=== PATIENT | male | born 1970 | race Caucasian/White ===

== ENCOUNTER 2017-06-07 13:10 | Emergency (ER) | payer OTHER ==
[~2017-06-07] VITALS: Ht 182.9 cm; Wt 136.1 kg
[~2017-06-07 13:10] MED LIST: AMOX500 PO; ASPI81CH PO; ATOR20 PO; HYDACE5 PO
[2017-06-07 13:56] LABS: BASOPHILS ABSOLUTE AUTO 0.03 K/mm3 (0.00-0.23); BASOPHILS PERCENT AUTO 0 % (0-2); EOSINOPHILS PERCENT AUTO 1 % (0-6); Hematocrit 44.1 % (37.0-53.0); Hemoglobin 14.7 g/dL (13.5-17.5); IMMATURE GRAN ABSOLUTE AUTO 0.05 K/mm3 (0.00-0.10); IMMATURE GRAN PERCENT AUTO 1 % (0-1); LYMPHOCYTES ABSOLUTE AUTO 0.97 K/mm3 (0.84-5.20); LYMPHOCYTES PERCENT AUTO 14 % (21-46); MONOCYTES PERCENT AUTO 9 % (4-13); Mean Corpuscular HGB 32.1 pg (26.0-34.0); Mean Corpuscular HGB Conc 33.3 g/dL (31.5-36.5); Mean Corpuscular Volume 96 fL (80-100); Mean Platelet Volume 9.5 fL (9.1-12.4); NEUTROPHILS ABSOLUTE AUTO 5.17 K/mm3 (1.96-9.15); NEUTROPHILS PERCENT AUTO 75 % (41-73); Platelet Count 140 K/mm3 (150-400); RDW Coefficient Variation 12.8 % (11.7-14.2); Red Blood Cell Count 4.58 M/mm3 (4.30-5.90); White Blood Cell Count 6.92 K/mm3 (4.00-11.30)
[2017-06-07 14:17] LABS: Alanine Aminotransfer (ALT/SGP 20 U/L (12-78); Albumin, Blood 3.5 g/dL (3.4-5.0); Albumin/Globulin Ratio 0.9 (0.8-1.8); Alk Phos 81 U/L (50-136); Anion Gap 7 mmol/L (6-16); Aspartate Aminotrans (AST/SGOT 28 U/L (12-37); Bilirubin, Total 0.5 mg/dL (0.1-1.0); Blood Urea Nitrogen 20 mg/dL (8-24); CO2, Blood 27 mmol/L (21-32); Chloride, Blood 106 mmol/L (98-108); Creatinine, Blood 1.05 mg/dL (0.60-1.20); Globulin, Blood 3.8 g/dL (2.2-4.0); Glomerular Filtration Rate >60 (60-); Glucose, Blood 126 mg/dL (70-99); Potassium, Blood 4.3 mmol/L (3.5-5.5); Sodium, Blood 140 mmol/L (136-145); Total Protein, Blood 7.3 g/dL (6.4-8.2)
[2017-06-07 16:09] LABS: Source, Urine Clean Catch
[2017-06-07] MEDS ORDERED: PSEU120ER PO (16:27)
[2017-06-07] MEDS ORDERED: AZIT500 PO (16:27)
[2017-06-07] MEDS ORDERED: ALBU90OI6 INH (16:27)
[2017-06-07] MEDS ORDERED: Prednisone20 MG PO (16:27)
[2017-06-07 16:47] LABS: Appearance, Urine Clear (Clear); Bilirubin, Urine Neg (Neg); Blood, Urine Neg (Neg); Color, Urine Yellow (P-Yellow); Glucose Qualitative, Urine Neg (Neg); Ketones, Urine Neg (Neg); Leukocyte Esterase, Urine Neg (Neg); Nitrite, Urine Neg (Neg); Protein, Urine Neg (Neg); Urobilinogen, Urine NORM (Normal)
== END 2017-06-07 16:47 | disposition home or self-care (01) ==
LOC: ER 13:10
PROVIDERS: Emergency Medicine
DX: J20.9 Acute bronchitis, unspecified (principal); J01.90 Acute sinusitis, unspecified; I21.9 Acute myocardial infarction, unspecified; Z91.013 Allergy to seafood; Z87.891 Personal history of nicotine dependence
CPT/HCPCS: 36415; 71046; 80053; 81003; 85025; 86850; 86900; 86901; 93005; 93010; 94640; 96361; 96374; 99284; J0696; J7030

== ENCOUNTER 2017-10-16 06:48 | Emergency (ER) | payer OTHER ==
[~2017-10-16] VITALS: Ht 182.9 cm; Wt 136.1 kg
[~2017-10-16 06:48] MED LIST changes: +ALBU90OI6 INH; +AZIT500 PO; +PSEU120ER PO; +Prednisone20 MG PO
[2017-10-16] MEDS ORDERED: FURO20 (07:17)
[2017-10-16] MEDS ORDERED: ALLO100 (07:17)
[2017-10-16 07:26] LABS: BASOPHILS ABSOLUTE AUTO 0.03 K/mm3 (0.00-0.23); BASOPHILS PERCENT AUTO 1 % (0-2); EOSINOPHILS ABSOLUTE AUTO 0.19 K/mm3 (0.00-0.68); EOSINOPHILS PERCENT AUTO 3 % (0-6); Hematocrit 43.7 % (37.0-53.0); Hemoglobin 14.7 g/dL (13.5-17.5); IMMATURE GRAN ABSOLUTE AUTO 0.02 K/mm3 (0.00-0.10); IMMATURE GRAN PERCENT AUTO 0 % (0-1); LYMPHOCYTES ABSOLUTE AUTO 1.36 K/mm3 (0.84-5.20); LYMPHOCYTES PERCENT AUTO 21 % (21-46); MONOCYTES PERCENT AUTO 6 % (4-13); Mean Corpuscular HGB 33.2 pg (26.0-34.0); Mean Corpuscular HGB Conc 33.6 g/dL (31.5-36.5); Mean Corpuscular Volume 99 fL (80-100); NEUTROPHILS ABSOLUTE AUTO 4.42 K/mm3 (1.96-9.15); NEUTROPHILS PERCENT AUTO 69 % (41-73); Platelet Count 128 K/mm3 (150-400); RDW Coefficient Variation 12.1 % (11.7-14.2); RDW Standard Deviation 43.9 fL (35.1-46.3); Red Blood Cell Count 4.43 M/mm3 (4.30-5.90); White Blood Cell Count 6.42 K/mm3 (4.00-11.30)
[2017-10-16 07:44] LABS: Alanine Aminotransfer (ALT/SGP 25 U/L (12-78); Albumin, Blood 3.5 g/dL (3.4-5.0); Albumin/Globulin Ratio 0.9 (0.8-1.8); Alk Phos 70 U/L (50-136); Anion Gap 6 mmol/L (6-16); Aspartate Aminotrans (AST/SGOT 23 U/L (12-37); Bilirubin, Total 0.4 mg/dL (0.1-1.0); Blood Urea Nitrogen 10 mg/dL (8-24); Bun/Creatinine Ratio 9.1 (12.0-20.0); CO2, Blood 29 mmol/L (21-32); Calcium, Blood 8.2 mg/dL (8.5-10.1); Chloride, Blood 107 mmol/L (98-108); Globulin, Blood 3.8 g/dL (2.2-4.0); Glomerular Filtration Rate >60 (60-); Glucose, Blood 118 mg/dL (70-99); Sodium, Blood 142 mmol/L (136-145); Total Protein, Blood 7.3 g/dL (6.4-8.2); Troponin I <0.015 ng/mL (0.000-0.040)
[2017-10-16] MEDS ORDERED: Lasix40 MG PO (09:03)
[2017-10-16] MEDS ORDERED: Prednisone20 MG PO (09:03)
[2017-10-16] MEDS ORDERED: ALBU90OI INH (09:03)
== END 2017-10-16 09:09 | disposition home or self-care (01) ==
LOC: ER 06:48
DX: R06.02 Shortness of breath (principal); Z91.013 Allergy to seafood; Z79.899 Other long term (current) drug therapy; I50.9 Heart failure, unspecified; J45.909 Unspecified asthma, uncomplicated; Z87.891 Personal history of nicotine dependence
CPT/HCPCS: 36415; 71046; 80053; 83880; 84484; 85025; 93005; 93010; 94640; 96374; 96375; 99285-25; J1940; J2930

== ENCOUNTER 2017-12-10 21:36 | Observation (INO) | payer OTHER ==
[~2017-12-10] VITALS: Ht 182.9 cm; Wt 142.9 kg
[~2017-12-10 21:36] MED LIST changes: +ALBU90OI INH; +ALLO100 PO; +FURO20; +Lasix40 MG PO
[2017-12-10] MEDS ORDERED: VITAMIN D35000 UNIT PO (21:59)
[2017-12-10] MEDS ORDERED: SPIR25 PO (22:00)
[2017-12-10] MEDS ORDERED: LOSA25 PO (22:00)
[2017-12-10] MEDS ORDERED: FURO40 PO (22:01)
[2017-12-10] MEDS ORDERED: ATOR80 PO (22:01)
[2017-12-10] MEDS ORDERED: NITR.4SL SL (22:03)
[2017-12-10 22:15] LABS: BASOPHILS ABSOLUTE AUTO 0.07 K/mm3 (0.00-0.23); BASOPHILS PERCENT AUTO 1 % (0-2); EOSINOPHILS ABSOLUTE AUTO 0.17 K/mm3 (0.00-0.68); EOSINOPHILS PERCENT AUTO 2 % (0-6); Hematocrit 43.7 % (37.0-53.0); Hemoglobin 14.4 g/dL (13.5-17.5); IMMATURE GRAN ABSOLUTE AUTO 0.07 K/mm3 (0.00-0.10); IMMATURE GRAN PERCENT AUTO 1 % (0-1); LYMPHOCYTES ABSOLUTE AUTO 2.78 K/mm3 (0.84-5.20); LYMPHOCYTES PERCENT AUTO 34 % (21-46); MONOCYTES ABSOLUTE AUTO 0.72 K/mm3 (0.16-1.47); MONOCYTES PERCENT AUTO 9 % (4-13); Mean Corpuscular HGB 32.5 pg (26.0-34.0); Mean Corpuscular Volume 99 fL (80-100); Mean Platelet Volume 9.6 fL (9.1-12.4); NEUTROPHILS ABSOLUTE AUTO 4.32 K/mm3 (1.96-9.15); NEUTROPHILS PERCENT AUTO 53 % (41-73); Platelet Count 166 K/mm3 (150-400); RDW Coefficient Variation 12.3 % (11.7-14.2); RDW Standard Deviation 44.5 fL (35.1-46.3); Red Blood Cell Count 4.43 M/mm3 (4.30-5.90); White Blood Cell Count 8.13 K/mm3 (4.00-11.30)
[2017-12-10 22:25] LABS: Alanine Aminotransfer (ALT/SGP 26 U/L (12-78); Albumin, Blood 3.8 g/dL (3.4-5.0); Albumin/Globulin Ratio 1.1 (0.8-1.8); Alk Phos 61 U/L (50-136); Anion Gap 5 mmol/L (6-16); Aspartate Aminotrans (AST/SGOT 26 U/L (12-37); Bilirubin, Total 0.6 mg/dL (0.1-1.0); Blood Urea Nitrogen 12 mg/dL (8-24); Bun/Creatinine Ratio 9.2 (12.0-20.0); CO2, Blood 33 mmol/L (21-32); Calcium, Blood 8.1 mg/dL (8.5-10.1); Chloride, Blood 101 mmol/L (98-108); Creatinine, Blood 1.31 mg/dL (0.60-1.20); Globulin, Blood 3.6 g/dL (2.2-4.0); Glomerular Filtration Rate >60 (60-); Glucose, Blood 153 mg/dL (70-99); Potassium, Blood 3.6 mmol/L (3.5-5.5); Sodium, Blood 139 mmol/L (136-145); Total Protein, Blood 7.4 g/dL (6.4-8.2); Troponin I <0.015 ng/mL (0.000-0.040)
[2017-12-11 00:03] LABS: Ethanol (Alcohol), Blood, Med 25 mg/dL
[2017-12-11] MEDS ORDERED: ASPI81CH PO (01:30)
[2017-12-11 03:25] LABS: U Amphetamine Screen Not Detected; U Barbituate Screen Not Detected; U Benzodiazapine Screen Not Detected; U Buprenorphine Screen Not Detected; U Cannabinoids Screen DETECTED; U Cocaine Screen Not Detected; U Methadone Screen DETECTED; U Methamphetamine Screen Not Detected; U Opiates Screen Not Detected; U Oxycodone Screen Not Detected; U Phencyclidine Screen Not Detected; U Propoxyphene Screen Not Detected
[2017-12-11 05:27] LABS: Anion Gap 7 mmol/L (6-16); Blood Urea Nitrogen 16 mg/dL (8-24); Bun/Creatinine Ratio 13.3 (12.0-20.0); CO2, Blood 29 mmol/L (21-32); Calcium, Blood 8.3 mg/dL (8.5-10.1); Chloride, Blood 103 mmol/L (98-108); Glomerular Filtration Rate >60 (60-); Glucose, Blood 114 mg/dL (70-99); Potassium, Blood 4.1 mmol/L (3.5-5.5); Sodium, Blood 139 mmol/L (136-145)
== END 2017-12-11 13:45 | disposition home or self-care (01) ==
LOC: ER 21:36 → MEDS 12-11 00:02 → ENPENDDIS 12-11 11:58 → MEDS 12-11 13:45
PROVIDERS: Emergency Medicine; Family Medicine
DX: R55 Syncope and collapse (principal); I11.0 Hypertensive heart disease with heart failure; I50.40 Unspecified combined systolic (congestive) and diastolic (congestive) heart failure; E66.01 Morbid (severe) obesity due to excess calories; I95.89 Other hypotension; E78.5 Hyperlipidemia, unspecified; M10.9 Gout, unspecified; Z79.82 Long term (current) use of aspirin; Z79.899 Other long term (current) drug therapy; Z68.41 Body mass index [BMI] 40.0-44.9, adult
CPT/HCPCS: 36415; 71046; 80048; 80053; 83880; 84484; 85025; 90686; 93005; 93010; 99285-25; G0008; G0378; G0480; J7030

== ENCOUNTER 2018-10-27 19:23 | Inpatient (IN) | payer OTHER ==
[~2018-10-27] VITALS: Ht 182.9 cm; Wt 148.6 kg
[~2018-10-27 19:23] MED LIST changes: -ALLO100 PO; +ALLO300 PO; +ATOR80 PO; +FURO40 PO; +LOSA25 PO; +NITR.4SL SL; +SPIR25 PO; +VITAMIN D35000 UNIT PO
[2018-10-27 20:06] LABS: BASOPHILS ABSOLUTE AUTO 0.04 K/mm3 (0.00-0.23); BASOPHILS PERCENT AUTO 0 % (0-2); EOSINOPHILS ABSOLUTE AUTO 0.02 K/mm3 (0.00-0.68); EOSINOPHILS PERCENT AUTO 0 % (0-6); Hematocrit 43.5 % (37.0-53.0); IMMATURE GRAN PERCENT AUTO 1 % (0-1); LYMPHOCYTES ABSOLUTE AUTO 1.89 K/mm3 (0.84-5.20); LYMPHOCYTES PERCENT AUTO 16 % (21-46); MONOCYTES ABSOLUTE AUTO 1.03 K/mm3 (0.16-1.47); MONOCYTES PERCENT AUTO 9 % (4-13); Mean Corpuscular HGB Conc 34.5 g/dL (31.5-36.5); Mean Corpuscular Volume 96 fL (80-100); Mean Platelet Volume 9.9 fL (9.1-12.4); NEUTROPHILS ABSOLUTE AUTO 8.46 K/mm3 (1.96-9.15); NEUTROPHILS PERCENT AUTO 73 % (41-73); Platelet Count 166 K/mm3 (150-400); RDW Coefficient Variation 13.2 % (11.7-14.2); RDW Standard Deviation 46.6 fL (35.1-46.3); Red Blood Cell Count 4.55 M/mm3 (4.30-5.90); White Blood Cell Count 11.54 K/mm3 (4.00-11.30)
[2018-10-27 20:28] LABS: Alanine Aminotransfer (ALT/SGP 18 U/L (12-78); Albumin, Blood 3.3 g/dL (3.4-5.0); Albumin/Globulin Ratio 0.8 (0.8-1.8); Alk Phos 81 U/L (50-136); Anion Gap 6 mmol/L (6-16); Aspartate Aminotrans (AST/SGOT 20 U/L (12-37); Bilirubin, Total 0.6 mg/dL (0.1-1.0); Blood Urea Nitrogen 11 mg/dL (8-24); Bun/Creatinine Ratio 9.3 (12.0-20.0); CO2, Blood 24 mmol/L (21-32); Calcium, Blood 8.6 mg/dL (8.5-10.1); Chloride, Blood 102 mmol/L (98-108); Creatinine, Blood 1.18 mg/dL (0.60-1.20); Globulin, Blood 4.4 g/dL (2.2-4.0); Glomerular Filtration Rate >60 (60-); Glucose, Blood 194 mg/dL (70-99); Potassium, Blood 3.6 mmol/L (3.5-5.5); Sodium, Blood 132 mmol/L (136-145); Total Protein, Blood 7.7 g/dL (6.4-8.2); Troponin I 0.031 ng/mL (0.000-0.040)
[2018-10-27] MEDS ORDERED: METO25ER PO (20:40)
--- NOTE | 2018-10-27 23:00 | NUR ---
RECEIVED HAND OFF FROM Patti LAGUNA RN IN ER USING SBAR. TRANSPORTED TO ROOM VIA STRETCHER. TRANFERED SELF TO BED WITH STANDBY ASSIST, TOLERATED WELL. AAO X3, HICKS, FOLLOWS ALL COMMADNS. ORIENTED TO ROOM, CALL SYSTEM, AND POC, VOICES UNDERSTADING. RESPIRARTIONS EVEN AND UNLABORED ON ROOM AIR. LUNG SOUNDS CLEAR AND DIMINSHED IN BASES BILATERALLY. ABDOMEN ROUND AND OBESE WITH DISTANT BOWEL SOUNDS NOTED. LAST BM WAS YESTERDAY AND IS PASSING ADEQUATE GAS. CONTINENT OF BOWEL AND BLADDER, ABLE TO USE COMMODE IN ROOM WITH STANDBY ASSIST. LEFT HAND SL 20G PIV IS PATENT, FLUSHING WITH EASE. 18G TO RIGHT AC IS PATENT, FLUSHING WITH EASE WHILE INFUSING AMIODARONE AT 33.3ML/HR PER MD ORDERS. SCD'S TO BLE. WILL BE NPO PAST MN. BEDSIDE MONITORING IN PLACE, TELE SHOWS NSR WITH PAC'S, 74 BPM. DENEIS FURTHER NEEDS AT THIS TIME. ADMISSION ASSESSMENT IN PROGRESS. SAFETY MEASURES IN PLACE. WILL CONTINUE TO MONITOR.
[2018-10-28 00:05] LABS: Phosphorus, Blood 3.1 mg/dL (2.5-4.9)
[2018-10-28 04:14] LABS: BASOPHILS ABSOLUTE AUTO 0.03 K/mm3 (0.00-0.23); BASOPHILS PERCENT AUTO 0 % (0-2); EOSINOPHILS ABSOLUTE AUTO 0.03 K/mm3 (0.00-0.68); EOSINOPHILS PERCENT AUTO 0 % (0-6); Hematocrit 38.5 % (37.0-53.0); Hemoglobin 12.8 g/dL (13.5-17.5); IMMATURE GRAN ABSOLUTE AUTO 0.08 K/mm3 (0.00-0.10); IMMATURE GRAN PERCENT AUTO 1 % (0-1); LYMPHOCYTES ABSOLUTE AUTO 1.13 K/mm3 (0.84-5.20); LYMPHOCYTES PERCENT AUTO 14 % (21-46); MONOCYTES ABSOLUTE AUTO 0.78 K/mm3 (0.16-1.47); MONOCYTES PERCENT AUTO 10 % (4-13); Mean Corpuscular HGB 32.3 pg (26.0-34.0); Mean Corpuscular HGB Conc 33.2 g/dL (31.5-36.5); Mean Corpuscular Volume 97 fL (80-100); Mean Platelet Volume 9.4 fL (9.1-12.4); NEUTROPHILS ABSOLUTE AUTO 6.04 K/mm3 (1.96-9.15); NEUTROPHILS PERCENT AUTO 75 % (41-73); Platelet Count 146 K/mm3 (150-400); RDW Coefficient Variation 13.1 % (11.7-14.2); RDW Standard Deviation 46.9 fL (35.1-46.3); Red Blood Cell Count 3.96 M/mm3 (4.30-5.90); White Blood Cell Count 8.09 K/mm3 (4.00-11.30)
[2018-10-28 04:28] LABS: International Normalized Ratio 1.03; Prothrombin Time Results 10.9 Sec (9.7-11.5)
[2018-10-28 04:43] LABS: Anion Gap 5 mmol/L (6-16); Blood Urea Nitrogen 12 mg/dL (8-24); Bun/Creatinine Ratio 11.3 (12.0-20.0); CO2, Blood 29 mmol/L (21-32); Chloride, Blood 104 mmol/L (98-108); Creatinine, Blood 1.06 mg/dL (0.60-1.20); Glomerular Filtration Rate >60 (60-); Glucose, Blood 148 mg/dL (70-99); Potassium, Blood 4.5 mmol/L (3.5-5.5); Sodium, Blood 138 mmol/L (136-145)
--- NOTE | 2018-10-28 06:06 | NUR ---
SHIFT SUMMARY LYING IN SEMI FOWLERS WEITH EYES CLOSED. HAS RESTED WELL SINCE ADMISSION AFTER K-RIDER PLACED TO 25ML/HR SINCE HE COULD NOT TOLERATE 50ML/HR. 2ND K-RIDER INFUSING NOW. HAS BEEN NPO SINCE MIDNIGHT. NO C/O CP. DENIES FURTHER NEEDS AT THIS TIME. SAFETY MEASURES IN PLACE. WILL GIVE HAND OFF TO ONCOING SHIFT USING SBAR.
--- NOTE | 2018-10-28 07:20 | NUR ---
START OF SHIFT NOTE: RECEIVED REPORT FROM LUCIE BALDERAS, ASSUMED CARE, PATIENT IS AWAKE, ALERT AND ORIENTED, FOLLOWS COMMANDS, AT BEDSIDE, PATIENT HAS KCL INFUSING VIS LEFT HAND 20G PIV, TOLERATING WELL, LUNG SOUNDS ARE CLEAR, NSR WITH HR IN 60'S, DENIES PAIN, AFEBRILE, REPORTS NO CHEST PAIN/PRESSURE, NO DIAPHORESIS, BOWEL TONES HYPOACTIVE, USES URINAL AND HAS GOOD URINE OUTPUT, ORDERED URINE SAMPLE SENT, PEDAL PULSES STRONG, CALL LIGHT IN REACH, WILL CONTINUE TO MONITOR.
--- NOTE | 2018-10-28 07:45 | NUR ---
DR. NOLASCO IN TO SEE PATIENT, SCHEDULED FOR HEART CATH TODAY, NPO OF NOW, HOLD AM MEDS, PATIENT PLEASANT AND COOPERATIVE, PENDING QUESTIONS ANSWERED, CALL LIGHT IN REACH, WILL CONTINUE TO MONITOR.
[2018-10-28 08:07] LABS: U Amphetamine Screen Not Detected; U Barbituate Screen Not Detected; U Benzodiazapine Screen Not Detected; U Buprenorphine Screen Not Detected; U Cannabinoids Screen DETECTED; U Cocaine Screen Not Detected; U Methadone Screen Not Detected; U Methamphetamine Screen Not Detected; U Opiates Screen Not Detected; U Oxycodone Screen DETECTED; U Phencyclidine Screen Not Detected; U Propoxyphene Screen Not Detected
--- NOTE | 2018-10-28 08:15 | NUR ---
DR. MILTON IN TO SEE PATIENT, NO NEW ORDERS RECEIVED.
--- NOTE | 2018-10-28 09:15 | NUR ---
CORPORATE SCHEDULER IN TO OBTAIN ORDERED ECHO.
--- NOTE | 2018-10-28 09:37 | NUR ---
ALEJANDRA, WIRE HANGER NURSE IN TO GET PATIENT FOR PENDING HEART CATH PROCEDURE.
--- NOTE | 2018-10-28 09:46 | NUR ---
PATIENT TO PLATING ENGINEER VIA ICU HOSPITAL BED.
--- NOTE | 2018-10-28 11:05 | NUR ---
ECHOCARDIOGRAM COMPLETED
--- NOTE | 2018-10-28 13:25 | NUR ---
PATIENT RETURNED FROM LINE SUPERVISOR IN HOSPITAL BED, TR BAND IN PLACE WRAPPED WITH ARMBOARD ON RIGHT RADIAL, PROCEDURE UNSUCCESSFUL, PATIENT PENDING TRANSFER TO [facility], NPO AT THIS TIME, SCD'S IN PLACE ORDERED, WILL START DEFLATING TR BAND AT 1430 HOURS, VS AR STABLE, PATIENT INSTRUCTED TO TREAT RIGHT WRIST IF IN A CAST AND NOT BENDIT OR USE THAT ARM, PATIENT VERBALIZED UNDERSTANDING, WILL START DEFLATING TR BAND AT ABOUT 1430, IF TR BAND IS OFF BY 1630 HOURS, START HEPARIN DRIP AT 14 U/KG/HR AT 1930 HOURS, IF PATIENT IS STILL HERE.
--- NOTE | 2018-10-28 13:26 | NUR ---
PATIENT BACK FROM [facility] FOR PLASTIC, PENDING TRANSFER TO [facility] FOR BYPASS SURGERY.
--- NOTE | 2018-10-28 15:11 | NUR ---
DR. STONE WAS NOTIFIED ABOUT CRITICAL PTT OF 127.5, ALSO DR. STONE NOTIFIED THIS RN THAT PATIENT WILL BE TRANSFERRED TO [facility], D/T [facility] BEING UNABLE TO TAKE PATIENT, CHARGE NURSE NOTIFIED, PATIENT WAS ALSO NOTIFIED OF CHANGE IN PLANS, CALL LIGHT IN REACH, WILL CONTINUE TO MONITOR.
--- NOTE | 2018-10-28 16:15 | NUR ---
PATIENT LEFT TO [facility], VIA [facility] AT 16:15, IV PUMP WITH PATIENT D/T AMIODARONE DRIP, REPORT GIVEN TO EMT'S, CALLED [facility] AND NOTIFIED LUCIE GALEANO, THAT PATIENT HAD LEFT.
--- NOTE | 2018-10-28 21:07 | NUR ---
MANUAL ARTS THERAPIST DISC SENT WITH [facility] OFFICER TAMERA TO BE TAKEN TO [facility]. DANIELLE, THE NEUROSURGERY PHYSICIAN IN CCU AT [facility] AND WILL BE THE CONTACT FOR [facility].
== END 2018-10-28 16:13 | disposition short-term general hospital (02) | DRG 871 ==
LOC: ER 19:23 → ICUW 22:10
PROVIDERS: Emergency Medicine; Internal Medicine Cardiovascular Disease; Nurse Practitioner Acute Care; ADMIT Hospitalist
DX: A41.9 Sepsis, unspecified organism (principal); J18.9 Pneumonia, unspecified organism; I50.43 Acute on chronic combined systolic (congestive) and diastolic (congestive) heart failure; I47.2 Ventricular tachycardia; Z68.41 Body mass index [BMI] 40.0-44.9, adult; M10.9 Gout, unspecified; E78.5 Hyperlipidemia, unspecified; J45.909 Unspecified asthma, uncomplicated; I25.2 Old myocardial infarction; I25.118 Atherosclerotic heart disease of native coronary artery with other forms of angina pectoris; Z87.891 Personal history of nicotine dependence; I25.5 Ischemic cardiomyopathy; E66.9 Obesity, unspecified; G47.33 Obstructive sleep apnea (adult) (pediatric)
CPT/HCPCS: 36415; 71045; 80048; 80053; 83735; 83880; 84100; 84145; 84443; 84484; 85025; 85347; 85610; 85730; 92920; 92960; 93005; 93010; 93454; 96365-59; 96366-59; 96367-59; 99152; 99153; 99285-25; C1725; C1769; C1887; C1894; C8929; J0282; J0696; J1200; J1644; J1720; J2250; J2405; J2930; J3010; J3480; J3490; J7030; J7050; J7060; Q9957; Q9967

== ENCOUNTER 2019-07-26 12:55 | Emergency (ER) | payer OTHER ==
[~2019-07-26] VITALS: Ht 182.9 cm; Wt 149.7 kg
[~2019-07-26 12:55] MED LIST changes: +BENZ100A PO; +METO25ER PO
[2019-07-26 14:06] LABS: BASOPHILS ABSOLUTE AUTO 0.02 K/mm3 (0.00-0.23); BASOPHILS PERCENT AUTO 0 % (0-2); EOSINOPHILS ABSOLUTE AUTO 0.15 K/mm3 (0.00-0.68); EOSINOPHILS PERCENT AUTO 2 % (0-6); Hematocrit 45.1 % (37.0-53.0); Hemoglobin 15.2 g/dL (13.5-17.5); IMMATURE GRAN ABSOLUTE AUTO 0.12 K/mm3 (0.00-0.10); IMMATURE GRAN PERCENT AUTO 2 % (0-1); LYMPHOCYTES ABSOLUTE AUTO 1.57 K/mm3 (0.84-5.20); LYMPHOCYTES PERCENT AUTO 21 % (21-46); MONOCYTES ABSOLUTE AUTO 0.53 K/mm3 (0.16-1.47); MONOCYTES PERCENT AUTO 7 % (4-13); Mean Corpuscular HGB 33.9 pg (26.0-34.0); Mean Corpuscular HGB Conc 33.7 g/dL (31.5-36.5); Mean Corpuscular Volume 100 fL (80-100); Mean Platelet Volume 9.1 fL (9.1-12.4); NEUTROPHILS ABSOLUTE AUTO 5.04 K/mm3 (1.96-9.15); NEUTROPHILS PERCENT AUTO 68 % (41-73); Platelet Count 191 K/mm3 (150-400); RDW Coefficient Variation 12.6 % (11.7-14.2); RDW Standard Deviation 47.1 fL (35.1-46.3); Red Blood Cell Count 4.49 M/mm3 (4.30-5.90); White Blood Cell Count 7.43 K/mm3 (4.00-11.30)
[2019-07-26 14:24] LABS: Alanine Aminotransfer (ALT/SGP 29 U/L (12-78); Albumin, Blood 3.8 g/dL (3.4-5.0); Alk Phos 73 U/L (50-136); Anion Gap 8 mmol/L (6-16); Aspartate Aminotrans (AST/SGOT 18 U/L (12-37); Bilirubin, Total 0.7 mg/dL (0.1-1.0); Blood Urea Nitrogen 19 mg/dL (8-24); Bun/Creatinine Ratio 18.3 (12.0-20.0); CO2, Blood 28 mmol/L (21-32); Calcium, Blood 8.3 mg/dL (8.5-10.1); Chloride, Blood 102 mmol/L (98-108); Creatinine, Blood 1.04 mg/dL (0.60-1.20); Globulin, Blood 3.9 g/dL (2.2-4.0); Glomerular Filtration Rate >60 (60-); Glucose, Blood 120 mg/dL (70-99); Potassium, Blood 3.9 mmol/L (3.5-5.5); Sodium, Blood 138 mmol/L (136-145); Total Protein, Blood 7.7 g/dL (6.4-8.2)
[2019-07-26] MEDS ORDERED: Bactrim Ds Tab1 EACH PO (14:44)
[2019-07-26] MEDS ORDERED: CEPH500 PO (14:44)
== END 2019-07-26 14:55 | disposition home or self-care (01) ==
LOC: ER 12:55
PROVIDERS: Physician Assistant
DX: L03.311 Cellulitis of abdominal wall (principal); I11.0 Hypertensive heart disease with heart failure; I50.9 Heart failure, unspecified; E78.5 Hyperlipidemia, unspecified; M10.9 Gout, unspecified; Z79.82 Long term (current) use of aspirin; Z79.899 Other long term (current) drug therapy; Z91.013 Allergy to seafood
CPT/HCPCS: 36415; 80053; 85025; 99283

== ENCOUNTER 2025-02-06 06:13 | Emergency (ER) | payer MEDICARE ==
[~2025-02-06] VITALS: Ht 182.9 cm; Wt 122.5 kg
[~2025-02-06 06:13] MED LIST changes: +Bactrim Ds Tab1 EACH PO; +CEPH500 PO
[2025-02-06 07:37] LABS: BASOPHILS ABSOLUTE AUTO 0.06 K/mm3 (0.00-0.23); BASOPHILS PERCENT AUTO 0 % (0-2); EOSINOPHILS ABSOLUTE AUTO 0.17 K/mm3 (0.00-0.68); EOSINOPHILS PERCENT AUTO 1 % (0-6); Hematocrit 43.1 % (37.0-53.0); Hemoglobin 14.6 g/dL (13.5-17.5); IMMATURE GRAN ABSOLUTE AUTO 0.08 K/mm3 (0.00-0.10); IMMATURE GRAN PERCENT AUTO 1 % (0-1); LYMPHOCYTES ABSOLUTE AUTO 1.40 K/mm3 (0.84-5.20); LYMPHOCYTES PERCENT AUTO 9 % (21-46); MONOCYTES ABSOLUTE AUTO 0.82 K/mm3 (0.16-1.47); MONOCYTES PERCENT AUTO 5 % (4-13); Mean Corpuscular HGB Conc 33.9 g/dL (31.5-36.5); Mean Corpuscular Volume 100 fL (80-100); NEUTROPHILS ABSOLUTE AUTO 12.67 K/mm3 (1.96-9.15); NEUTROPHILS PERCENT AUTO 83 % (41-73); NRBC ABSOLUTE 0.00 K/mm3 (0.00-0.02); NRBC Auto 0.0 /100 WBC (0.0-0.2); Platelet Count 167 K/mm3 (150-400); RDW Coefficient Variation 13.0 % (11.7-14.2); RDW Standard Deviation 47.6 fL (35.1-46.3)
[2025-02-06 07:52] LABS: Alanine Aminotransfer (ALT/SGP 22.0 U/L (12-78); Albumin, Blood 3.7 g/dL (3.4-5.0); Albumin/Globulin Ratio 1.0 (0.8-1.8); Anion Gap 9.0 mmol/L (3-11); Aspartate Aminotrans (AST/SGOT 15.0 U/L (12-37); Bilirubin, Total 0.6 mg/dL (0.1-1.0); Blood Urea Nitrogen 9.0 mg/dL (8-24); CO2, Blood 29.0 mmol/L (21-32); Calcium, Blood 8.7 mg/dL (8.5-10.1); Chloride, Blood 105.0 mmol/L (98-108); Creatinine, Blood 1.05 mg/dL (0.60-1.20); Globulin, Blood 3.6 g/dL (2.2-4.0); Glucose, Blood 134.0 mg/dL (70-99); Potassium, Blood 3.7 mmol/L (3.5-5.5); Sodium, Blood 139.0 mmol/L (136-145); Total Protein, Blood 7.3 g/dL (6.4-8.2)
[2025-02-06] MEDS ORDERED: Sucralfate 1000MG / 10ML UD BTL PO ONE (08:25)
[2025-02-06] MEDS ORDERED: Protonix40 MG PO (08:29)
[2025-02-06 08:42] VITALS: BP 161/94
== END 2025-02-06 08:40 | disposition home or self-care (01) ==
LOC: ER 06:13
PROVIDERS: Emergency Medicine
DX: K22.10 Ulcer of esophagus without bleeding (principal); I11.0 Hypertensive heart disease with heart failure; I50.20 Unspecified systolic (congestive) heart failure; E78.5 Hyperlipidemia, unspecified; I10 Essential (primary) hypertension; Z79.82 Long term (current) use of aspirin; Z91.013 Allergy to seafood; Z88.8 Allergy status to other drugs, medicaments and biological substances
CPT/HCPCS: 71046; 80053; 84484; 85025; 87430; 93005; 93010; 99283-25; A9270